=== PATIENT | male | born 1970 | race Caucasian/White ===

== ENCOUNTER 2016-07-18 15:22 | Emergency (ER) | payer BC ==
[~2016-07-18] VITALS: Ht 180.3 cm; Wt 137.0 kg
[~2016-07-18 15:22] MED LIST: BUPR-79 PO; BUPR1SUB SL; STRUNK PO
[2016-07-18 15:34] VITALS: Ht 180.3 cm; Wt 137.0 kg
[2016-07-18] MEDS ORDERED: SODIUM CHLORIDE 0.9% 1000ML 1,000 ML IV STA (16:29)
[2016-07-18] MEDS ORDERED: DIPHTHERIA/TETANUS/PERTUSSIS 0.5 ML SYR/VIAL IM. ONE (16:30)
[2016-07-18] MEDS ORDERED: XYLOCAINE 1%/SOD BICARB 20 ML VIAL INFIL ONE (16:30)
[2016-07-18] MEDS ORDERED: BUPRTAB51 PO (16:41)
[2016-07-18] MEDS ORDERED: AMPH20CA3 PO (16:42)
[2016-07-18] MEDS ORDERED: CHOL2000 PO (16:43)
[2016-07-18 16:54] LABS: BASO % 0.1 %; BASO ABS # 0.01 K/uL (0-0.2); COMPLETE YES; EOS % 0.4 %; HEMATOCRIT 53.2 % (42-52); IG% 0.3 %; LYMPH % 7.8 %; LYMPH ABS # 1.24 K/uL (1.2-3.4); MEAN CELL VOLUME 88.2 fL (80-100); MEAN CORPUSCULAR HEMOGLOBIN 32.3 pg (25-34); MEAN CORPUSCULAR HGB CONC 36.7 g/dl (32-36); MEAN PLATELET VOLUME 9.2 fL (7.4-10.4); MONO % 5.1 %; NEUT % 86.3 %; PLATELET COUNT 346 K/uL (130-400); RED BLOOD COUNT 6.03 M/uL (4.7-6.1); WHITE BLOOD COUNT 15.96 K/uL (4.8-10.8)
--- NOTE | 2016-07-18 17:00 | DIAGNOSTIC IMAGING REPORT ---
CHEST ONE VIEW PORTABLE CLINICAL HISTORY: syncope COMPARISON STUDY: No previous studies for comparison. FINDINGS: The cardiac and mediastinal contours are normal. There is no evidence of focal pulmonary consolidation. There is no evidence of failure. No pleural effusions are visualized.[ IMPRESSION: No active disease in the chest. Electronically signed by: Hiren Godoy M.D. 07/18/2016 4:59 PM Dictated Date/Time: 07/18/2016 4:59 PM
[2016-07-18 17:32] LABS: ALB/GLOB RATIO 1.1 (0.9-2); ALKALINE PHOSPHATASE 89 U/L (45-117); ALT/SGPT 56 U/L (12-78); AST/SGOT 24 U/L (15-37); BLOOD UREA NITROGEN 20 mg/dl (7-18); BUN/CREATININE RATIO 13.3 (10-20); CALCIUM 9.4 mg/dl (8.5-10.1); CARBON DIOXIDE 19 mmol/L (21-32); CHLORIDE 109 mmol/L (98-107); GLUCOSE 106 mg/dl (70-99); POTASSIUM 4.1 mmol/L (3.5-5.1); SODIUM 140 mmol/L (136-145)
--- NOTE | 2016-07-18 17:32 | DIAGNOSTIC IMAGING REPORT ---
CT HEAD WITHOUT CONTRAST (CT) CLINICAL HISTORY: syncope, head injury FRONTAL PAIN COMPARISON STUDY: No previous studies for comparison. TECHNIQUE: Axial CT of the brain is performed from the vertex to the skull base. IV contrast was not administered for this examination. CT DOSE: 537.48 mGy.cm FINDINGS: No intra or extra-axial mass lesions are visualized. There is no CT evidence of acute cortical infarction. There is no evidence of midline shift. There is no acute hemorrhage. No calvarial fractures are visualized. There is minimal left frontal scalp edema There is no evidence of pathologic ventricular dilatation. There is a sphenoid sinus air-fluid level. There is mucosal disease within the ethmoid sinuses. IMPRESSION: 1. Paranasal sinus disease 2. No acute intracranial findings Electronically signed by: Hiren Godoy M.D. 07/18/2016 5:30 PM Dictated Date/Time: 07/18/2016 5:27 PM
[2016-07-18 19:16] VITALS: TEMP 36.9
[2016-07-18] MEDS ORDERED: AMOXICILLIN/CLAVULANATE TAB 875 MG TAB PO ONE (19:30)
[2016-07-18] MEDS ORDERED: AMOX875T PO (19:55)
--- NOTE | 2016-07-18 19:56 | EMERGENCY ROOM VISIT NOTE ---
History First contact with patient: 16:19 Chief Complaint: SYNCOPE Stated Complaint: DIARRHEA,DIZZINESS,SYNCOPE,FACIAL INJURIES Nursing Triage Summary: Patient presents to triage via wheelchair, states "I wasn't feeling well. I got up to go to the bathroom. I started feeling funny in my head and thought I would throw up. The next thing I knew, I was on the floor. My glasses broke and cut me on the left side of my forehead." Laceration noted to the left medial eyebrow extending up onto the left medial forehead. Laceration about 2 inches in length. History of Present Illness The patient is a 45 year old male who presents to the Emergency Room with complaints of a syncopal episode which occurred just prior to arrival. The patient states that he has been ill for the past week. He states that he initially had nasal congestion and was coughing up mucus. He was seen by a walk -in clinic and told to use Flonase and states that his symptoms have been improving slightly. The patient states that he developed diarrhea 3 days ago. He has had persistent diarrhea and has had little food intake. He states that he was slightly lightheaded. His symptoms seemed to improve this morning slightly. He states that he went to the bathroom because he thought he had a few bowel movement. He reports that when he sat down, he began to feel lightheaded, nauseous and had a syncopal episode. He states that he hit his head and his glasses broke and cut the left side of his forehead. The patient is unsure of his tetanus status. He states that he feels much better at this time. He denies any recent antibiotic use, foreign travel, uncooked food or unknown water sources. He denies fevers/chills, chest pain, no abdominal pain, nausea, vomiting or urinary symptoms. Review of Systems A complete 10-point Review of Systems was discussed with the patient, with pertinent positives and negatives listed in the History of Present Illness. All remaining Review of Systems questions can be considered negative unless otherwise specified. Social History Smoking Status: Current Every Day Smoker Current/Historical Medications Scheduled Amoxicillin & Pot Clavulanate (Augmentin 875-125 mg), 1 TAB PO BID Amphetamine-Dextroamphetamine 20MG (Adderall Xr 20MG), 20 MG PO DAILY Bupropion (Wellbutrin-Xl), 300 MG PO DAILY Cholecalciferol (Vitamin D3), 4,000 UNITS PO DAILY Allergies Coded Allergies: No Known Allergies (Verified , 07/18/16) Physical Exam Vital Signs Date Time Temp Pulse Resp B/P Pulse Ox O2 Delivery O2 Flow Rate FiO2 07/18/16 20:06 75 16 123/98 99 07/18/16 19:16 36.9 74 18 138/85 96 Room Air 07/18/16 18:49 36.7 18 98 Room Air 07/18/16 17:39 79 19 121/88 98 Room Air 07/18/16 16:52 Room Air 07/18/16 15:34 86 20 118/84 98 Room Air Physical Exam VITALS: Vitals are noted on the nurse's note and reviewed by myself. Vital signs stable. GENERAL: This is a 45-year-old male, in no acute distress, nondiaphoretic, well- developed well-nourished. SKIN: There is a 3.5 cm curved laceration to the left side of the forehead. No foreign bodies seen. No active bleeding. HEAD: Normocephalic atraumatic. EARS: External auditory canals clear, tympanic membranes pearly willis without erythema or effusion bilaterally. No hemotympanum. EYES: Pupils equal round and reactive to light and accommodation. Conjunctivae without injection, sclerae without icterus. Extraocular movements intact. NOSE: Patent, turbinates with clear nasal discharge. MOUTH: Mucous membranes moist. Tonsils are not enlarged. Pharynx without erythema or exudate. NECK: Supple without nuchal rigidity. No lymphadenopathy. Cervical spine is nontender. HEART: Regular rate and rhythm without murmurs gallops or rubs. LUNGS: Clear to auscultation bilaterally without wheezes, rales or rhonchi. ABDOMEN: Positive bowel sounds x 4. Soft, nontender to palpation. NEURO: Patient was alert and oriented to person place and time. Normal sensation to light and sharp touch. No focal neurological deficits. Medical Decision & Procedures ER Provider Diagnostic Interpretation: CT HEAD WITHOUT CONTRAST (CT) FINDINGS: No intra or extra-axial mass lesions are visualized. There is no CT evidence of acute cortical infarction. There is no evidence of midline shift. There is no acute hemorrhage. No calvarial fractures are visualized. There is minimal left frontal scalp edema There is no evidence of pathologic ventricular dilatation. There is a sphenoid sinus air-fluid level. There is mucosal disease within the ethmoid sinuses. IMPRESSION: 1. Paranasal sinus disease 2. No acute intracranial findings CHEST ONE VIEW PORTABLE FINDINGS: The cardiac and mediastinal contours are normal. There is no evidence of focal pulmonary consolidation. There is no evidence of failure. No pleural effusions are visualized.[ IMPRESSION: No active disease in the chest. Laboratory Results 07/18/16 16:40 Red Blood Count 6.03, Mean Corpuscular Volume 88.2, Mean Corpuscular Hemoglobin 32.3, Mean Corpuscular Hemoglobin Concent 36.7, Mean Platelet Volume 9.2, Neutrophils (%) (Auto) 86.3, Lymphocytes (%) (Auto) 7.8, Monocytes (%) (Auto) 5.1, Eosinophils (%) (Auto) 0.4, Basophils (%) (Auto) 0.1, Neutrophils # (Auto) 13.77, Lymphocytes # (Auto) 1.24, Monocytes # (Auto) 0.82, Eosinophils # (Auto) 0.07, Basophils # (Auto) 0.01 07/18/16 16:40 Test 07/18/16 16:40 07/18/16 18:00 White Blood Count 15.96 K/uL (4.8-10.8) Red Blood Count 6.03 M/uL (4.7-6.1) Hemoglobin 19.5 g/dL (14.0-18.0) Hematocrit 53.2 % (42-52) Mean Corpuscular Volume 88.2 fL (80-100) Mean Corpuscular Hemoglobin 32.3 pg (25-34) Mean Corpuscular Hemoglobin Concent 36.7 g/dl (32-36) Platelet Count 346 K/uL (130-400) Mean Platelet Volume 9.2 fL (7.4-10.4) Neutrophils (%) (Auto) 86.3 % Lymphocytes (%) (Auto) 7.8 % Monocytes (%) (Auto) 5.1 % Eosinophils (%) (Auto) 0.4 % Basophils (%) (Auto) 0.1 % Neutrophils # (Auto) 13.77 K/uL (1.4-6.5) Lymphocytes # (Auto) 1.24 K/uL (1.2-3.4) Monocytes # (Auto) 0.82 K/uL (0.11-0.59) Eosinophils # (Auto) 0.07 K/uL (0-0.5) Basophils # (Auto) 0.01 K/uL (0-0.2) RDW Standard Deviation 43.3 fL (36.4-46.3) RDW Coefficient of Variation 13.4 % (11.5-14.5) Immature Granulocyte % (Auto) 0.3 % Immature Granulocyte # (Auto) 0.05 K/uL (0.00-0.02) Anion Gap 12.0 mmol/L (3-11) Est Creatinine Clear Calc Drug Dose 88.9 ml/min Estimated GFR () 64.7 Estimated GFR (Non- 55.8 BUN/Creatinine Ratio 13.3 (10-20) Calcium Level 9.4 mg/dl (8.5-10.1) Total Bilirubin 0.8 mg/dl (0.2-1) Aspartate Amino Transf (AST/SGOT) 24 U/L (15-37) Alanine Aminotransferase (ALT/SGPT) 56 U/L (12-78) Alkaline Phosphatase 89 U/L (45-117) Troponin I < 0.015 ng/ml (0-0.045) Total Protein 8.9 gm/dl (6.4-8.2) Albumin 4.7 gm/dl (3.4-5.0) Globulin 4.2 gm/dl (2.5-4.0) Albumin/Globulin Ratio 1.1 (0.9-2) Lipase 98 U/L (73-393) Chemistry Specimen Hemolysis Urine Color DK YELLOW Urine Appearance CLOUDY (CLEAR) Urine pH 5.0 (4.5-7.5) Urine Specific [place] 1.035 (1.000-1.030) Urine Protein 1+ (NEG) Urine Glucose (UA) NEG (NEG) Urine Ketones TRACE (NEG) Urine Occult Blood NEG (NEG) Urine Nitrite NEG (NEG) Urine Bilirubin NEG (NEG) Urine Urobilinogen NEG (NEG) Urine Leukocyte Esterase TRACE (NEG) Urine WBC (Auto) 1-5 /hpf (0-5) Urine RBC (Auto) 10-30 /hpf (0-4) Urine Hyaline Casts (Auto) >30 /lpf (0-5) Urine Epithelial Cells (Auto) >30 /lpf (0-5) Urine Bacteria (Auto) NEG (NEG) Urine Renal Epithelial Cells 5-10 /lpf (0-5) Urine Crystals CALCIUM OXALATE (NONE Urine Pathogenic Casts 1-5 GRANULAR CASTS /lpf (0) Medications Administered Medications (Trade) Dose Ordered Sig/Sharri Route Start Time Stop Time Status Last Admin Dose Admin Sodium Chloride (Nss 1000ml) 1,000 ml @ 999 mls/hr Q1H1M STAT IV 07/18/16 16:29 07/18/16 17:29 DC 07/18/16 16:51 999 MLS/HR Diphtheria/ Pertussis/Tetanus Vacc (Adacel Inj) 0.5 ml ONCE ONCE IM. 07/18/16 16:30 07/18/16 16:32 DC 07/18/16 16:48 0.5 ML Lidocaine HCl (Buffered Lidocaine 1% Inj) 20 ml ONE ONCE INFIL 07/18/16 16:30 07/18/16 16:32 DC 07/18/16 16:30 20 ML Amoxicillin/ Clavulanate Potassium (Augmentin Tab) 875 mg ONE ONCE PO 07/18/16 19:30 07/18/16 19:31 DC 07/18/16 19:36 875 MG Procedure Verbal consent was obtained to perform the procedure. Using sterile technique the wound was cleaned with Betadine. The area was sterilely draped. 4 ml of 1 % buffered lidocaine was used to anesthetize the laceration. Once the patient was anesthetized, the wound was copiously irrigated under pressure with sterile saline. The wound was explored and there were no deep structures injured such as tendons, bone, or significant blood vessels. The laceration was repaired using 10 simple interrupted 6-0 nylon sutures with the wound edges being well approximated. The patient tolerated the procedure well. Hemostasis was achieved. The area was cleaned with sterile saline and dressed with bacitracin ointment and bandage. ECG Indication: syncope Rate (beats per minute): 83 Rhythm: normal sinus Findings: no acute ischemic change, no ectopy Medical Decision Differential diagnosis includes vasovagal syncope, infection, metabolic abnormality, cardiac syncope, among others. The patient was evaluated as above. Labs were drawn and IV access was obtained. Imaging studies were performed and read by radiology as above. The patient was medicated with 2 L normal saline solution. Laceration repair was performed as noted above. The patient was given an Adacel booster. The patient was reassessed multiple times during their stay in the emergency department and remained in stable condition. The patient is a 45-year-old male who presents today complaining of a laceration after syncopal episode. Labs revealed moderate leukocytosis. There was elevation of the creatinine and BUN consistent with dehydration. Urinalysis was do not suggestive of infection. Troponin was not elevated. EKG was unremarkable. I do for the patient's syncopal episode was likely secondary to vasovagal syncope and dehydration. He was hydrated with 2 L of normal saline solution with improvement of his symptoms. His laceration was repaired. CT scan did show evidence of sinus disease and given the patient's elevated white blood cell count, I did choose to treat him with an antibiotic. The patient was also given an order to have stool tested as an outpatient, as he was not able to provide a sample in the emergency department. He was instructed to follow-up closely with his primary care provider for further evaluation. He should return for any worsening of his current condition. Based on the patient's presentation, lab results, and imaging studies, I feel the patient is stable for outpatient treatment. The patient's case was reviewed with Dr. Seaman, ED attending physician, who agreed with my assessment and treatment plan. Discharge instructions were reviewed with the patient. The patient verbalized understanding of my assessment and treatment plan and was discharged home in good condition. Impression Primary Impression: Syncope Additional Impressions: Sinusitis Forehead laceration Departure Information Dispostion Home / Self-Care Condition GOOD Prescriptions Amoxicillin & Pot Clavulanate (Augmentin 875-125 mg) 1 Tab Tab 1 TAB PO BID for 10 Days, #20 TAB Prov: Sue Alvarez .ASHLEE 07/18/16 Referrals Isha Alvarez D.O. (PCP) Patient Instructions [facility] Additional Instructions You were prescribed Augmentin to be taken as prescribed. This is an antibiotic. All antibiotics have the potential to cause diarrhea. Stop this medication and contact a medical provider if you were to develop any significant adverse side effects including: wheezing, shortness of breath, passing out, vomiting, or a diffuse rash. Always take antibiotics as directed and COMPLETE the ENTIRE course regardless of the improvement of your symptoms. You have been provided with the order to have your stool tested as an outpatient. You have received 10 sutures on your forehead. These sutures are NOT dissolvable and WILL need to be removed by a health care provider in 6-7 days. You can return to the Emergency Department or contact your Primary Care Provider to have the sutures removed. Proper wound care is essential for adequate wound healing and infection prevention. You can shower and clean the wound with soap and water. Do not scour over the wound, pat dry with a towel. Do not submerse the wound (i.e. bathe or dish wash) until the sutures have been removed. You can use an antibiotic ointment with a dressing over the wound for the next 3-4 days. After this time you may leave the wound dry and open to the air. If crust develops over the wound you can use a Q-tip to apply a 1:1 peroxide:water solution to clean the wound. Look for signs of infection of the wound including: increased pain, swelling, foul discharge, streaking, or increased temperature. If any of these are noticed you should return to the Emergency Department for further assessment and treatment. As with any laceration you may have received nerve damage to the surrounding tissues. This damage may or may not be permanent. You should keep the area covered with sunscreen for the first 6 months to 1 year when at risk for exposure to help minimize scarring. You can also use scar reducing creams or Vitamin E oil to help minimize scarring. Rest and drink plenty of fluids. Follow-up with your primary care provider within 48 hours for further evaluation. Problem Qualifiers Primary Impression: Syncope Syncope type: unspecified Qualified Codes: R55 - Syncope and collapse Additional Impressions: Sinusitis Sinusitis location: unspecified location Chronicity: acute Recurrence: non -recurrent Qualified Codes: J01.90 - Acute sinusitis, unspecified Forehead laceration Encounter type: initial encounter Qualified Codes: S01.81XA - Laceration without foreign body of other part of head, initial encounter
[2016-07-18 20:06] VITALS: BP 123/98; PULSE 75; O2SAT 99
[2016-07-18 20:10] LABS: URINE APPEARANCE CLOUDY (CLEAR); URINE COLOR DK YELLOW; URINE EPITHELIAL CELL AUTO >30 /lpf (0-5); URINE NITRITE NEG (NEG); URINE SPECIFIC GRAVITY 1.035 (1.000-1.030); UROBILINOGEN NEG (NEG); ZZUR CULT IF INDIC CLEAN CATCH NO
[2016-07-18 20:13] LABS: MANUAL MICROSCOPIC REQUIRED? NO; REVIEW REQ? YES
[2016-07-18 20:14] LABS: URINE BILIRUBIN NEG (NEG)
[2016-07-18 20:34] LABS: URINE PATH CASTS 1-5 GRANULAR CASTS /lpf (0)
== END 2016-07-18 20:08 | disposition home or self-care (01) ==
LOC: C.EDB 15:23 → C.EDC 20:08
DX: R55 Syncope and collapse (principal); S01.81XA Laceration without foreign body of other part of head, initial encounter; W25.XXXA Contact with sharp glass, initial encounter; W18.39XA Other fall on same level, initial encounter; Y92.89 Other specified places as the place of occurrence of the external cause; J32.9 Chronic sinusitis, unspecified; F17.210 Nicotine dependence, cigarettes, uncomplicated

== ENCOUNTER → 2016-07-19 | Outpatient (CLI) | payer BC ==
[~2016-07-19] MED LIST changes: +AMOX875T PO; +AMPH20CA3 PO; -BUPR-79 PO; -BUPR1SUB SL; +BUPRTAB51 PO; +CHOL2000 PO; -STRUNK PO
== END | disposition home or self-care (01) ==
LOC: C.LABSPEC 10:28
PROVIDERS: ATTEND Physician Assistant
DX: R19.7 Diarrhea, unspecified (principal)